=== PATIENT | female | born 1960 | race Two or more races ===

== ENCOUNTER 2018-06-04 07:02 | Emergency (ER) | payer OTHER ==
[~2018-06-04] VITALS: Ht 170.2 cm; Wt 69.9 kg
--- NOTE | 2018-06-04 07:21 | NUR ---
[id number] FROM HOME C/C BACK OF HEAD PAIN/LAC, NECK PAIN, AND MID BACK S/P , + NAUSEA, -LOC, SMALL CONTUSION ON OCCIPITAL LOBE,
[2018-06-04] MEDS ORDERED: TDAP [DIPH/PERTUSSIS/TET] 0.5 ML VIAL IM ONE ×2 (07:27→07:30)
[2018-06-04] MEDS ORDERED: ONDANSETRON 4 MG TAB.RAPDIS SL ONE (08:00)
[2018-06-04] MEDS ORDERED: ONDANSETRON 4 MG TAB.RAPDIS ONE (08:11)
--- NOTE | 2018-06-04 08:46 | NUR ---
Patient discharged to home in stable condition. Written and verbal after care instructions given. Patient verbalizes understanding of instruction.
[2018-06-04 08:47] VITALS: BP 139/65
== END 2018-06-04 08:47 | disposition home or self-care (01) ==
LOC: ER 07:04
DX: S01.01XA Laceration without foreign body of scalp, initial encounter (principal); S13.4XXA Sprain of ligaments of cervical spine, initial encounter; S23.3XXA Sprain of ligaments of thoracic spine, initial encounter; W10.8XXA Fall (on) (from) other stairs and steps, initial encounter; Y93.89 Activity, other specified; Y92.89 Other specified places as the place of occurrence of the external cause; Y99.8 Other external cause status
CPT/HCPCS: 70450-TC; 72125-TC; 72128-TC; 90715; Q0162

== ENCOUNTER 2018-12-20 20:20 | Emergency (ER) | payer OTHER ==
[~2018-12-20] VITALS: Ht 170.2 cm; Wt 70.3 kg
[2018-12-20 21:03] VITALS: BP 145/99
--- NOTE | 2018-12-20 22:42 | NUR ---
PT WAS PROVIDED W/ SAMARA WRAP ON THE R WRIST. Patient discharged to home in stable condition. Written and verbal after care instructions given. Patient verbalizes understanding of instruction.
== END 2018-12-20 22:43 | disposition home or self-care (01) ==
LOC: ER 20:22
DX: S60.211A Contusion of right wrist, initial encounter (principal); W22.8XXA Striking against or struck by other objects, initial encounter; Y93.89 Activity, other specified; Y92.89 Other specified places as the place of occurrence of the external cause; Y99.8 Other external cause status
CPT/HCPCS: 73110

== ENCOUNTER 2020-12-07 19:22 | Emergency (ER) | payer OTHER ==
[~2020-12-07] VITALS: Ht 172.7 cm; Wt 71.7 kg
--- NOTE | 2020-12-07 19:50 | NUR ---
PT BIBS C/O " SENT ME HERE FOR MRI BECAUSE LEFT BACK OF HEAD NUMBNESS" ALSO C/O LEFT SCIATICA PAIN, STATES THAT AFTER RECEVING COVID SHOT. PT ALERT AND ORIENTED X3. AMBULATORY WITH NON LABORED BREATHING.
--- NOTE | 2020-12-07 20:09 | NUR ---
Note archana in EDM - 12/07/20 at 2010 by GENE PT BIBJenna C/O " SENT ME HERE FOR MRI BECAUSE LEFT BACK OF HEAD NUMBNESS" ALSO C/O LEFT SCIATICA PAIN, STATES THAT AFTER RECEVING COVID SHOT. PT ALERT AND ORIENTED X3. AMBULATORY WITH NON LABORED BREATHING.
[2020-12-07 20:12] LABS: BASOPHILS % (AUTO) 0.6 % (0.0-2.0); EOSINOPHILS % (AUTO) 1.6 % (0.0-6.0); HEMATOCRIT 39 % (33-45); LYMPHOCYTES # (AUTO) 1.5 K/uL (0.8-4.8); LYMPHOCYTES % (AUTO) 23.8 % (20.0-44.0); MEAN CORPUSCULAR HGB CONC 34 g/dl (31.0-36.0); MEAN CORPUSCULAR VOLUME 88 fL (82-100); MONOCYTES # (AUTO) 0.4 K/uL (0.1-1.30); MONOCYTES % (AUTO) 6.8 % (2.0-12.0); NEUTROPHILS # (AUTO) 4.2 K/uL (1.8-8.9); NEUTROPHILS % (AUTO) 67.2 % (43.0-81.0); PLATELET COUNT (AUTO) 157 K/uL (150-450); RED BLOOD CELL COUNT(AUTO) 4.37 MIL/uL (4.0-5.2); WHITE BLOOD COUNT (AUTO) 6.3 K/uL (4.3-11.0)
--- NOTE | 2020-12-07 20:15 | NUR ---
PT GOING TO CT.
[2020-12-07 20:20] LABS: CALCIUM, SERUM 9.5 mg/dL (8.5-10.1); POTASSIUM 3.8 mmol/L (3.5-5.1)
[2020-12-07 20:26] LABS: ALBUMIN 4.3 g/dL (3.4-5.0); BILIRUBIN,DIRECT 0.1 mg/dL (0.0-0.2); BILIRUBIN,TOTAL 0.4 mg/dL (0.2-1.0); TOTAL PROTEIN, SERUM 7.5 g/dL (6.4-8.2)
--- NOTE | 2020-12-07 20:30 | NUR ---
PT BACK FROM CT.
[2020-12-07 21:38] LABS: BILIRUBIN,URINE NEGATIVE (NEGATIVE); COLOR,URINE YELLOW (YELLOW); LEUKOCYTE ESTERASE ,URINE SMALL (NEGATIVE); NITRITE, URINE NEGATIVE (NEGATIVE); PROTEIN,URINE NEGATIVE (NEGATIVE); UGLUCOSE NEGATIVE (NEGATIVE); UROBILINOGEN,URINE 0.2 EU/dL (0.2)
[2020-12-07 21:53] LABS: BACTERIA,URINE 1+ /HPF (None Seen); RBC,URINE 0-2 /HPF (0-2); SQUAMOUS EPITHELIAL CELL,UR 0-2 /HPF (None Seen)
[2020-12-07] MEDS ORDERED: DIAZ5TAB PO (21:55)
--- NOTE | 2020-12-07 22:13 | NUR ---
Patient discharged to home in stable condition. Written and verbal after care instructions given. Patient verbalizes understanding of instruction. RX given
[2020-12-07 22:14] VITALS: BP 120/80
== END 2020-12-07 22:15 | disposition home or self-care (01) ==
LOC: ER 19:28
DX: R42 Dizziness and giddiness (principal)
CPT/HCPCS: 36415; 70450-TC; 80048-TC; 80076-TC; 81001; 85025-TC; 87086-TC

== ENCOUNTER 2021-12-16 21:15 | Emergency (ER) | payer OTHER ==
[~2021-12-16] VITALS: Ht 167.6 cm; Wt 83.9 kg
[~2021-12-16 21:15] MED LIST: DIAZ5TAB PO
--- NOTE | 2021-12-16 21:45 | NUR ---
TO ER BED 2. [id number] FROM HOME C/O DIZZINESS N/V X 2 HRS. HX OF VERTIGO. PT IS ALERT, STATES "FEELS LIKE THE ROOM IS SPINNING". NO WEKANESS TO EXTREMITIES NOTED. NO FACIAL DROOP. DIZZINESS RELIEVED BY "KEEPING EYES CLOSED". RR EVEN AND NONLABORED. CONNECTED TO MONITOR. DAUGHTER AT BEDSIDE. WILL CONTINUE TO MONITOR.
--- NOTE | 2021-12-16 21:46 | NUR ---
XRAY AT BEDSIDE
--- NOTE | 2021-12-16 21:53 | NUR ---
LAB AT BEDSIDE
[2021-12-16 22:10] LABS: BASOPHILS % (AUTO) 0.3 % (0.0-2.0); EOSINOPHILS % (AUTO) 1.1 % (0.0-6.0); HEMATOCRIT 37 % (33-45); HEMOGLOBIN 12.5 g/dL (11.5-14.8); LYMPHOCYTES % (AUTO) 17.8 % (20.0-44.0); MEAN CORPUSCULAR HGB CONC 33 g/dl (31.0-36.0); MEAN CORPUSCULAR VOLUME 88 fL (82-100); MONOCYTES # (AUTO) 0.3 K/uL (0.1-1.30); MONOCYTES % (AUTO) 4.5 % (2.0-12.0); NEUTROPHILS # (AUTO) 4.2 K/uL (1.8-8.9); NEUTROPHILS % (AUTO) 76.3 % (43.0-81.0); PLATELET COUNT (AUTO) 150 K/uL (150-450); RED BLOOD CELL COUNT(AUTO) 4.28 MIL/uL (4.0-5.2); WHITE BLOOD COUNT (AUTO) 5.6 K/uL (4.3-11.0)
--- NOTE | 2021-12-16 22:15 | NUR ---
PT TAKEN FOR CT SCAN
--- NOTE | 2021-12-16 22:23 | NUR ---
PT BACK FROM CT SCAN , RECONNECTED TO MONITOR
[2021-12-16 22:46] LABS: ALANINE AMINOTRANSFERASE 41 U/L (12-78); ALBUMIN 3.9 g/dL (3.4-5.0); ALKALINE PHOSPHATASE 50 U/L (46-116); ASPARTATE AMINOTRANSFERASE 21 U/L (15-37); BILIRUBIN,DIRECT 0.1 mg/dL (0.0-0.2); BILIRUBIN,TOTAL 0.3 mg/dL (0.2-1.0); CALCIUM, SERUM 9.4 mg/dL (8.5-10.1); CARBON DIOXIDE 24 mmol/L (21-32); CHLORIDE 104 mmol/L (98-107); CREATININE 0.9 mg/dL (0.6-1.3); GLUCOSE 157 mg/dL (74-106); POTASSIUM 3.5 mmol/L (3.5-5.1); SODIUM SERUM 137 mmol/L (136-145); UREA NITROGEN, BLOOD 16 mg/dL (7-18)
[2021-12-16] MEDS ORDERED: ONDANSETRON HCL 4 MG/5 ML SOLUTION PO ONE (23:00)
[2021-12-16] MEDS ORDERED: MECLIZINE HCL 12.5 MG TABLET PO ONE (23:00)
[2021-12-16] MEDS ORDERED: MECLIZINE HCL 25 MG TABLET ONE (23:06)
[2021-12-16] MEDS ORDERED: ONDANSETRON 4 MG TAB.RAPDIS ONE (23:06)
[2021-12-17] MEDS ORDERED: MECL-159 PO (00:01)
--- NOTE | 2021-12-17 00:10 | NUR ---
Patient discharged to home in stable condition. Written and verbal after care instructions given. Patient verbalizes understanding of instruction.
[2021-12-17 00:11] VITALS: BP 158/69
== END 2021-12-17 00:11 | disposition home or self-care (01) ==
LOC: ER 21:16
DX: R42 Dizziness and giddiness (principal); R11.0 Nausea; Z79.899 Other long term (current) drug therapy
CPT/HCPCS: 99285; 70450; 71045; 93005; 85025; 80048; 80076; 36415; 84484; J8597; Q0162